=== PATIENT | female | born 1955 | race Caucasian/White ===

== ENCOUNTER → 2016-07-24 | Outpatient (CLI) | payer BC ==
--- NOTE | 2016-07-27 06:02 | RADIOLOGY REPORT PS360 ---
CT SOFT TISSUE NECK W/O CONT HISTORY: Left-sided neck mass MASS,LEFT SIDE OF NECK,THYROID GOITER ORDERING PHYSICIAN: Lina CRUZ PATIENT AGE: 60 years COMPARISON: None FINDINGS: There is marked enlargement of the left lobe of the thyroid gland with heterogeneous density and some coarse calcification especially along the lower pole. The left lobe measures up to 9.3 cm cephalad to caudad, 5 cm transverse, and 4.5 cm AP. There is some heterogeneous density of the lower pole on the right. The trachea is displaced toward the right by approximately 1.4 cm. Esophagus is also mildly displaced toward the right by approximately 1.2 cm. The trachea is somewhat narrowed in the transverse plane. No substernal extension The nasopharynx has an unremarkable appearance. The tonsils are slightly prominent on both sides. The left submandibular gland is somewhat atrophic compared to the right side. Scattered small lymph nodes are present in the neck with no dominant adenopathy. The epiglottis and glottic region/vocal folds are unremarkable. Upper thoracic images unremarkable. IMPRESSION: 1. Enlarged left lobe of the thyroid gland as described above consistent with goiter with displacement of the trachea toward the right and mild narrowing of the airway. 2. Otherwise negative CT neck without contrast
== END ==
LOC: RAD 14:27
DX: R22.1 Localized swelling, mass and lump, neck (principal); E04.9 Nontoxic goiter, unspecified

== ENCOUNTER → 2017-02-24 | Outpatient (CLI) | payer BC | LOC: LAB 14:56 | DX: E03.9 Hypothyroidism, unspecified (principal); E89.0 Postprocedural hypothyroidism; D34 Benign neoplasm of thyroid gland ==